=== PATIENT | female | born 2000 | race Caucasian/White ===

== ENCOUNTER 2019-07-08 11:52 | Emergency (ER) | payer MEDICAID ==
[~2019-07-08] VITALS: Ht 154.9 cm; Wt 59.0 kg
[2019-07-08 11:57] VITALS: BP 102/62
--- NOTE | 2019-07-08 12:05 | NUR ---
AMB TO BED 11
[2019-07-08] MEDS ORDERED: ACETAMINOPHEN EXTRA STRENGTH 500 MG TAB PO ONE (12:45)
--- NOTE | 2019-07-08 13:38 | NUR ---
MD AT BEDSIDE EXAMINING PATIENT.
[2019-07-08 13:51] VITALS: BP 102/62
== END 2019-07-08 13:51 | disposition home or self-care (01) ==
LOC: MED 11:52
DX: O26.892 Other specified pregnancy related conditions, second trimester (principal); R10.30 Lower abdominal pain, unspecified; Z3A.15 15 weeks gestation of pregnancy
CPT/HCPCS: 81002; 99283